=== PATIENT | male | born 1955 | race African-American/Black ===

== ENCOUNTER 2018-08-07 14:16 | Emergency (ER) | payer MEDICARE, OTHER ==
[~2018-08-07] VITALS: Ht 180.3 cm; Wt 112.0 kg
[2018-08-07] MEDS ORDERED: KETOROLAC 60MG/2ML VIAL IM STA (14:42)
[2018-08-07] MEDS ORDERED: CYCLOBENZAPRINE 10MG TABLET PO ONE (14:45)
[2018-08-07 15:27] LABS: BASOPHILS % 0.9 % (0.0-2.0); EOSINOPHILS % 6.6 % (0.0-5.0); HEMATOCRIT. 34.8 % (42.0-52.0); HEMOGLOBIN. 11.6 g/dL (14.0-18.0); LYMPHOCYTES % 23.4 % (20.0-50.0); MEAN CORPUSCULAR HEMOGLOBIN 30.4 pg (28.0-32.0); MEAN CORPUSCULAR VOLUME 90.9 fL (80.0-94.0); MEAN PLATELET VOLUME 9.6 fl (7.4-10.4); MONOCYTES % 12.2 % (2.0-8.0); NEUTROPHILS % 56.9 % (40.0-76.0); PLATELET 201 x1000/uL (130-400); RED BLOOD CELL COUNT 3.82 mill/uL (4.7-6.1)
[2018-08-07 15:33] LABS: CHLORIDE 109 mEq/L (98-107)
[2018-08-07 16:43] VITALS: BP 138/114
== END 2018-08-07 16:43 | disposition home or self-care (01) ==
LOC: ER 14:16
DX: M54.12 Radiculopathy, cervical region (principal); R07.9 Chest pain, unspecified; I10 Essential (primary) hypertension; M19.90 Unspecified osteoarthritis, unspecified site; E03.9 Hypothyroidism, unspecified; F17.200 Nicotine dependence, unspecified, uncomplicated
CPT/HCPCS: 36415; 71045; 80053; 84484; 85025; 93005; 96372; 99284; J1885

== ENCOUNTER 2019-12-11 10:54 | Emergency (ER) | payer MEDICARE, OTHER ==
[~2019-12-11] VITALS: Ht 182.9 cm; Wt 122.4 kg
[2019-12-11] MEDS ORDERED: IPRATROPIUM BROMIDE (0.02%) 0.5MG/2.5ML NEB HHN STA (12:00)
[2019-12-11] MEDS ORDERED: PREDNISONE 20MG TABLET PO STA (12:00)
[2019-12-11] MEDS ORDERED: ALBUTEROL (0.083%) 2.5MG/3ML NEB HHN STA (12:00)
[2019-12-11 12:34] LABS: BASOPHILS % 0.8 % (0.0-2.0); EOSINOPHILS % 4.5 % (0.0-5.0); HEMATOCRIT. 32.8 % (42.0-52.0); HEMOGLOBIN. 10.9 g/dL (14.0-18.0); LYMPHOCYTES % 14.4 % (20.0-50.0); MEAN CORPUSCULAR HEMOGLOBIN 28.9 pg (28.0-32.0); MEAN CORPUSCULAR VOLUME 87.4 fL (80.0-94.0); MONOCYTES % 8.1 % (2.0-8.0); NEUTROPHILS % 72.2 % (40.0-76.0); RED BLOOD CELL COUNT 3.76 mill/uL (4.7-6.1); RED CELL DISTRIBUTION WIDTH 15.6 % (11.6-14.6)
[2019-12-11 12:38] LABS: CHLORIDE 114 mEq/L (98-107); PROTHROMBIN TIME 10.8 sec (9.6-11.0)
[2019-12-11 13:01] LABS: CLARITY URINE CLEAR (CLEAR); COLOR URINE YELLOW (YELLOW); KETONES URINE NEGATIVE (NEGATIVE); LEUKOCYTE ESTERASE URINE TRACE (NEGATIVE); NITRITE URINE NEGATIVE (NEGATIVE); OCCULT BLOOD URINE NEGATIVE (NEGATIVE); PROTEIN URINE NEGATIVE (NEGATIVE); SPECIFIC GRAVITY URINE 1.017 (1.005-1.030)
[2019-12-11 13:03] LABS: PLATELET 264 x1000/uL (130-400)
[2019-12-11 14:16] VITALS: BP 101/77
== END 2019-12-11 14:18 | disposition home or self-care (01) ==
LOC: ER 10:54
DX: L03.314 Cellulitis of groin (principal); J44.9 Chronic obstructive pulmonary disease, unspecified; I12.9 Hypertensive chronic kidney disease with stage 1 through stage 4 chronic kidney disease, or unspecified chronic kidney disease; N18.9 Chronic kidney disease, unspecified; E03.9 Hypothyroidism, unspecified; M19.90 Unspecified osteoarthritis, unspecified site; F12.10 Cannabis abuse, uncomplicated; Z96.659 Presence of unspecified artificial knee joint
CPT/HCPCS: 36415; 71045; 80053; 81003; 83880; 84484; 85025; 85610; 94640; 99284; J7512

== ENCOUNTER 2020-08-20 14:16 | Emergency (ER) | payer MEDICARE, OTHER ==
[~2020-08-20] VITALS: Ht 182.9 cm; Wt 133.0 kg
[2020-08-20 15:31] VITALS: BP 120/94
[2020-08-20 16:29] LABS: BASOPHILS % 0.8 % (0.0-2.0); EOSINOPHILS % 2.4 % (0.0-5.0); HEMATOCRIT. 33.3 % (42.0-52.0); HEMOGLOBIN. 10.9 g/dL (14.0-18.0); LYMPHOCYTES % 25.3 % (20.0-50.0); MEAN CORPUSCULAR HEMOGLOBIN 29.4 pg (28.0-32.0); MEAN CORPUSCULAR VOLUME 89.3 fL (80.0-94.0); MEAN PLATELET VOLUME 9.8 fl (7.4-10.4); MONOCYTES % 7.1 % (2.0-8.0); NEUTROPHILS % 64.4 % (40.0-76.0); PLATELET 166 x1000/uL (130-400); RED BLOOD CELL COUNT 3.72 mill/uL (4.7-6.1); RED CELL DISTRIBUTION WIDTH 17.3 % (11.6-14.6)
[2020-08-20 16:34] LABS: CHLORIDE 110 mEq/L (98-107)
== END 2020-08-20 16:21 | disposition left against medical advice (07) ==
LOC: ER 14:16 → CANBEDREQ 08-21 04:45
DX: M79.10 Myalgia, unspecified site (principal); R13.10 Dysphagia, unspecified; F44.1 Dissociative fugue; E78.00 Pure hypercholesterolemia, unspecified; I10 Essential (primary) hypertension; Z53.29 Procedure and treatment not carried out because of patient's decision for other reasons; Z98.890 Other specified postprocedural states
CPT/HCPCS: 36415; 71045; 80048; 80076; 83605; 84145; 84484; 85025; 93005; 99285

== ENCOUNTER 2020-11-22 13:23 | Emergency (ER) | payer MEDICARE, OTHER ==
[~2020-11-22] VITALS: Ht 182.9 cm; Wt 122.0 kg
[2020-11-22] MEDS ORDERED: DOXY100C2 MT (14:58)
[2020-11-22] MEDS ORDERED: DOXYCYCLINE HYCLATE 100MG CAPSULE PO ONE (15:00)
[2020-11-22] MEDS ORDERED: CLOT113C TP (15:03)
[2020-11-22 15:43] VITALS: BP 151/89
== END 2020-11-22 15:43 | disposition home or self-care (01) ==
LOC: ER 13:23
DX: B48.8 Other specified mycoses (principal); I10 Essential (primary) hypertension; E03.9 Hypothyroidism, unspecified; E78.00 Pure hypercholesterolemia, unspecified; J44.9 Chronic obstructive pulmonary disease, unspecified; Z96.659 Presence of unspecified artificial knee joint
CPT/HCPCS: 99283

== ENCOUNTER 2021-04-08 12:48 | Emergency (ER) | payer MEDICARE, OTHER ==
[~2021-04-08] VITALS: Ht 182.9 cm; Wt 122.0 kg
[~2021-04-08 12:48] MED LIST: CLOT113C TP; DOXY100C2 MT
[2021-04-08 13:03] VITALS: BP 113/77
[2021-04-08] MEDS ORDERED: ACET650T37 MT (15:01)
[2021-04-08] MEDS ORDERED: NAPR375T5 MT (15:01)
== END 2021-04-08 15:39 | disposition home or self-care (01) ==
LOC: ER 12:48
DX: M25.521 Pain in right elbow (principal); I10 Essential (primary) hypertension; J44.1 Chronic obstructive pulmonary disease with (acute) exacerbation; E78.00 Pure hypercholesterolemia, unspecified; Z86.39 Personal history of other endocrine, nutritional and metabolic disease
CPT/HCPCS: 99281; 99282

== ENCOUNTER 2021-07-14 10:13 | Emergency (ER) | payer MEDICARE, OTHER ==
[~2021-07-14] VITALS: Ht 180.3 cm; Wt 123.0 kg
[~2021-07-14 10:13] MED LIST changes: +ACET650T37 MT; -DOXY100C2 MT; +DOXY100C5 MT; +NAPR375T5 MT
[2021-07-14 10:29] VITALS: BP 129/88
[2021-07-14] MEDS ORDERED: ACETAMINOPHEN 325MG TABLET PO STA (11:07)
[2021-07-14] MEDS ORDERED: IBUPROFEN 600MG TABLET PO STA (11:07)
[2021-07-14 11:55] LABS: BASOPHILS % 0.5 % (0.0-2.0); EOSINOPHILS % 5.1 % (0.0-5.0); HEMATOCRIT. 33.5 % (42.0-52.0); HEMOGLOBIN. 10.8 g/dL (14.0-18.0); LYMPHOCYTES % 23.1 % (20.0-50.0); MEAN CORPUSCULAR HEMOGLOBIN 27.9 pg (28.0-32.0); MEAN CORPUSCULAR VOLUME 86.4 fL (80.0-94.0); MEAN PLATELET VOLUME 8.9 fl (7.4-10.4); MONOCYTES % 8.7 % (2.0-8.0); NEUTROPHILS % 62.6 % (40.0-76.0); PLATELET 206 x1000/uL (130-400); RED BLOOD CELL COUNT 3.88 mill/uL (4.7-6.1); RED CELL DISTRIBUTION WIDTH 15.9 % (11.6-14.6)
[2021-07-14 12:03] LABS: CHLORIDE 112 mEq/L (98-107)
[2021-07-14 12:20] LABS: CLARITY URINE CLEAR (CLEAR); COLOR URINE YELLOW (YELLOW); KETONES URINE NEGATIVE (NEGATIVE); LEUKOCYTE ESTERASE URINE NEGATIVE (NEGATIVE); NITRITE URINE NEGATIVE (NEGATIVE); OCCULT BLOOD URINE NEGATIVE (NEGATIVE); PH URINE 5.5 (4.5-8.0); PROTEIN URINE NEGATIVE (NEGATIVE); SPECIFIC GRAVITY URINE 1.017 (1.005-1.030)
[2021-07-14] MEDS ORDERED: IOHEXOL-300 100 ML BOTTLE ONE (14:17)
[2021-07-14] MEDS ORDERED: CEPH500T MT (15:24)
== END 2021-07-14 15:37 | disposition home or self-care (01) ==
LOC: ER 10:13
DX: R10.32 Left lower quadrant pain (principal); I10 Essential (primary) hypertension; M19.90 Unspecified osteoarthritis, unspecified site; E78.00 Pure hypercholesterolemia, unspecified; J44.9 Chronic obstructive pulmonary disease, unspecified; Z96.659 Presence of unspecified artificial knee joint
CPT/HCPCS: 36415; 74176; 80053; 81003; 83690; 85025; 99284; Q9967

== ENCOUNTER 2021-07-17 12:52 | Emergency (ER) | payer MEDICARE, OTHER ==
[~2021-07-17] VITALS: Ht 180.3 cm; Wt 122.0 kg
[~2021-07-17 12:52] MED LIST changes: +CEPH500T MT
[2021-07-17] MEDS ORDERED: KETOROLAC 60MG/2ML VIAL IM STA (13:01)
[2021-07-17 13:23] LABS: BASOPHILS % 0.6 % (0.0-2.0); EOSINOPHILS % 4.7 % (0.0-5.0); HEMATOCRIT. 34.4 % (42.0-52.0); LYMPHOCYTES % 25.5 % (20.0-50.0); MEAN CORPUSCULAR HEMOGLOBIN 27.7 pg (28.0-32.0); MEAN PLATELET VOLUME 8.6 fl (7.4-10.4); MONOCYTES % 6.2 % (2.0-8.0); PLATELET 220 x1000/uL (130-400); RED BLOOD CELL COUNT 3.96 mill/uL (4.7-6.1); RED CELL DISTRIBUTION WIDTH 16.1 % (11.6-14.6)
[2021-07-17 14:07] LABS: CHLORIDE 109 mEq/L (98-107)
[2021-07-17 16:23] LABS: CLARITY URINE CLEAR (CLEAR); COLOR URINE YELLOW (YELLOW); KETONES URINE NEGATIVE (NEGATIVE); LEUKOCYTE ESTERASE URINE NEGATIVE (NEGATIVE); NITRITE URINE NEGATIVE (NEGATIVE); OCCULT BLOOD URINE NEGATIVE (NEGATIVE); PH URINE 5.5 (4.5-8.0); PROTEIN URINE NEGATIVE (NEGATIVE); SPECIFIC GRAVITY URINE 1.018 (1.005-1.030); UROBILINOGEN URINE 0.2 E.U./dL (0.2-1.0)
[2021-07-17] MEDS ORDERED: CEFTRIAXONE SODIUM 1 G/VIAL IM ONE (16:30)
[2021-07-17] MEDS ORDERED: CIPR500T5 MT (16:33)
[2021-07-17 17:00] VITALS: BP 140/96
[2021-07-17] MEDS ORDERED: LIDOCAINE HCL 1% 10 MG/ML 10ML VIAL INJ NR (17:00)
[2021-07-17] MEDS ORDERED: CEFTRIAXONE SODIUM 1 G/VIAL IM NR (17:00)
== END 2021-07-17 17:25 | disposition home or self-care (01) ==
LOC: ER 13:40
DX: N12 Tubulo-interstitial nephritis, not specified as acute or chronic (principal); J44.9 Chronic obstructive pulmonary disease, unspecified; I10 Essential (primary) hypertension; Z98.890 Other specified postprocedural states; Z79.899 Other long term (current) drug therapy
CPT/HCPCS: 36415; 80053; 81003; 83690; 85025; 96372; 99284; J0696; J1885; J3490

== ENCOUNTER 2021-08-15 12:30 | Emergency (ER) | payer MEDICARE, OTHER ==
[~2021-08-15] VITALS: Ht 182.9 cm; Wt 121.0 kg
[~2021-08-15 12:30] MED LIST changes: +CIPR500T5 MT
[2021-08-15] MEDS ORDERED: KETOROLAC 60MG/2ML VIAL IM STA (13:10)
[2021-08-15] MEDS ORDERED: NAPR-1164 MT (14:20)
[2021-08-15 14:29] VITALS: BP 128/81
== END 2021-08-15 16:06 | disposition home or self-care (01) ==
LOC: ER 12:30
DX: M25.521 Pain in right elbow (principal); I10 Essential (primary) hypertension; E78.00 Pure hypercholesterolemia, unspecified; J44.9 Chronic obstructive pulmonary disease, unspecified; Z96.659 Presence of unspecified artificial knee joint
CPT/HCPCS: 73070; 96372; 99283; J1885

== ENCOUNTER 2021-10-05 10:17 | Emergency (ER) | payer MEDICARE ==
[~2021-10-05] VITALS: Ht 182.9 cm; Wt 125.0 kg
[~2021-10-05 10:17] MED LIST changes: +NAPR-1164 MT
[2021-10-05] MEDS ORDERED: CYCLOBENZAPRINE 10MG TABLET PO ONE (10:45)
[2021-10-05] MEDS ORDERED: KETOROLAC 30MG/ML VIAL IM ONE (10:45)
[2021-10-05] MEDS ORDERED: CYCL10TA7 MT (11:38)
[2021-10-05] MEDS ORDERED: NAPR-1176 MT (11:38)
[2021-10-05 11:59] VITALS: BP 165/65
== END 2021-10-05 12:01 | disposition home or self-care (01) ==
LOC: ER 10:17
DX: M25.511 Pain in right shoulder (principal); E78.00 Pure hypercholesterolemia, unspecified; I10 Essential (primary) hypertension; E03.9 Hypothyroidism, unspecified; M19.90 Unspecified osteoarthritis, unspecified site; Z96.653 Presence of artificial knee joint, bilateral
CPT/HCPCS: 73030; 96372; 99283; J1885

== ENCOUNTER 2022-03-27 10:45 | Emergency (ER) | payer MEDICARE ==
[~2022-03-27] VITALS: Ht 182.9 cm; Wt 123.0 kg
[~2022-03-27 10:45] MED LIST changes: +ACET-3163 MT; -ACET650T37 MT; +CYCL10TA21 MT; +NAPR-1176 MT
[2022-03-27] MEDS ORDERED: LIDOCAINE 5% PATCH TOP SCH (13:00)
[2022-03-27] MEDS ORDERED: CYCLOBENZAPRINE 10MG TABLET PO ONE (13:00)
[2022-03-27 13:32] VITALS: BP 99/74
[2022-03-27] MEDS ORDERED: CYCL5TAB MT (14:20)
[2022-03-30] MEDS ORDERED: ATOR20TA PO (11:31)
[2022-03-30] MEDS ORDERED: TERA1CAP53 PO (11:31)
[2022-03-30] MEDS ORDERED: LEVO112T7 PO (11:31)
[2022-03-30] MEDS ORDERED: IBUP-2030 PO (11:31)
[2022-03-30] MEDS ORDERED: LOSA100T32 PO (11:31)
[2022-03-30] MEDS ORDERED: CLOP75TA33 PO (11:31)
[2022-03-30] MEDS ORDERED: AMLO10TA4 PO (11:31)
[2022-03-30] MEDS ORDERED: TAMS-11 PO (11:31)
== END 2022-03-27 14:31 | disposition home or self-care (01) ==
LOC: ER 10:45
DX: S39.012A Strain of muscle, fascia and tendon of lower back, initial encounter (principal); R07.89 Other chest pain; X58.XXXA Exposure to other specified factors, initial encounter; Y93.89 Activity, other specified; Y92.032 Bedroom in apartment as the place of occurrence of the external cause
CPT/HCPCS: 71045; 99283

== ENCOUNTER 2022-04-27 10:12 | Emergency (ER) | payer MEDICARE, MEDICAID ==
[~2022-04-27] VITALS: Ht 182.9 cm; Wt 122.0 kg
[~2022-04-27 10:12] MED LIST changes: +AMLO10TA4 PO; +ATOR20TA PO; -CEPH500T MT; -CIPR500T5 MT; +CLOP75TA33 PO; -DOXY100C5 MT; +HYDR-4001 MT; +IBUP-2030 PO; +LEVO112T7 PO; +LOSA100T32 PO; -NAPR-1164 MT; -NAPR-1176 MT; +TAMS-11 PO; +TERA1CAP53 PO
[2022-04-27] MEDS ORDERED: HYDROCODONE/ACETAMINOPHEN 5/325MG TABLET PO ONE (13:30)
[2022-04-27] MEDS ORDERED: LIDOCAINE 5% PATCH TOP SCH (13:30)
[2022-04-27] MEDS ORDERED: KETOROLAC 60MG/2ML VIAL IM ONE (13:30)
[2022-04-27] MEDS ORDERED: METHOCARBAMOL 750MG TABLET PO SCH (13:30)
[2022-04-27 14:03] VITALS: BP 124/88
[2022-04-27] MEDS ORDERED: TOPUD PO (14:47)
[2022-04-27] MEDS ORDERED: LIDO1ADH23 TP (14:47)
[2022-04-27] MEDS ORDERED: IBUP-2028 MT (14:47)
[2022-04-27] MEDS ORDERED: METH-653 MT (14:47)
== END 2022-04-27 15:17 | disposition home or self-care (01) ==
LOC: ER 10:12
DX: M54.50 Low back pain, unspecified (principal); I10 Essential (primary) hypertension; E78.00 Pure hypercholesterolemia, unspecified; E03.9 Hypothyroidism, unspecified; M19.90 Unspecified osteoarthritis, unspecified site; J44.9 Chronic obstructive pulmonary disease, unspecified; Z96.649 Presence of unspecified artificial hip joint
CPT/HCPCS: 71045; 74176; 93005; 96372; 99285; J1885

== ENCOUNTER 2022-06-30 10:01 | Emergency (ER) | payer MEDICARE ==
[~2022-06-30] VITALS: Ht 182.9 cm; Wt 122.0 kg
[~2022-06-30 10:01] MED LIST changes: +IBUP-2028 MT; +LIDO1ADH23 TP; +METH-653 MT; +TOPUD PO
[2022-06-30 10:31] VITALS: BP 118/75
[2022-06-30] MEDS ORDERED: DEXAMETHASONE 10 MG/ML VIAL IM ONE (12:00)
[2022-06-30] MEDS ORDERED: OXYCODONE HCL/ACETAMINOPHEN 5/325MG TABLET PO ONE (12:00)
== END 2022-06-30 13:35 | disposition home or self-care (01) ==
LOC: ER 10:33
DX: M16.9 Osteoarthritis of hip, unspecified (principal); I10 Essential (primary) hypertension; E78.00 Pure hypercholesterolemia, unspecified; Z79.899 Other long term (current) drug therapy; Z98.890 Other specified postprocedural states; Z86.39 Personal history of other endocrine, nutritional and metabolic disease
CPT/HCPCS: 96372; 99283; J1100

== ENCOUNTER 2022-09-05 14:41 | Emergency (ER) | payer MEDICARE ==
[~2022-09-05] VITALS: Ht 182.9 cm; Wt 118.0 kg
[2022-09-05 14:46] VITALS: BP 110/76
[2022-09-05] MEDS ORDERED: IBUP-2029 PO ×2 (16:07)
[2022-09-05] MEDS ORDERED: IBUPROFEN 600MG TABLET PO ONE (16:15)
[2022-09-05] MEDS ORDERED: HYDROCODONE/ACETAMINOPHEN 5/325MG TABLET PO ONE (16:15)
[2022-09-05] MEDS ORDERED: ACETAMINOPHEN WITH CODEINE 300/30MG TABLET PO ONE (16:45)
[2022-09-05] MEDS ORDERED: DEXAMETHASONE 10 MG/ML VIAL IV ONE (16:45)
[2022-09-05] MEDS ORDERED: DEXAMETHASONE 10 MG/ML VIAL IM ONE (16:45)
== END 2022-09-05 17:20 | disposition home or self-care (01) ==
LOC: ER 14:41
DX: M25.552 Pain in left hip (principal); I10 Essential (primary) hypertension; E78.00 Pure hypercholesterolemia, unspecified; J44.1 Chronic obstructive pulmonary disease with (acute) exacerbation; Z79.899 Other long term (current) drug therapy; Z98.890 Other specified postprocedural states; Z86.39 Personal history of other endocrine, nutritional and metabolic disease
CPT/HCPCS: 96374; 99283; J1100

== ENCOUNTER 2022-11-27 10:56 | Emergency (ER) | payer MEDICARE ==
[~2022-11-27] VITALS: Ht 182.9 cm; Wt 125.0 kg
[2022-11-27 13:23] LABS: BASOPHILS % 0.5 % (0.0-2.0); HEMATOCRIT. 33.3 % (42.0-52.0); HEMOGLOBIN. 10.8 g/dL (14.0-18.0); LYMPHOCYTES % 14.1 % (20.0-50.0); MEAN CORPUSCULAR HEMOGLOBIN 27.2 pg (28.0-32.0); MEAN CORPUSCULAR VOLUME 83.7 fL (80.0-94.0); MEAN PLATELET VOLUME 8.9 fl (7.4-10.4); MONOCYTES % 8.2 % (2.0-8.0); NEUTROPHILS % 74.2 % (40.0-76.0); PLATELET 262 x1000/uL (130-400); RED BLOOD CELL COUNT 3.98 mill/uL (4.7-6.1); RED CELL DISTRIBUTION WIDTH 19.7 % (11.6-14.6)
[2022-11-27 13:28] LABS: CHLORIDE 109 mEq/L (98-107)
[2022-11-27 13:31] LABS: PROTHROMBIN TIME 11.1 sec (9.6-11.0)
[2022-11-27 15:28] LABS: CHLORIDE 110 mEq/L (98-107)
[2022-11-27 15:46] LABS: ETHANOL BLOOD < 10 mg/dL
[2022-11-27] MEDS ORDERED: ACET-2708 MT (17:55)
[2022-11-27] MEDS ORDERED: LEVOTHYROXINE SODIUM 75MCG TABLET PO NR (18:00)
[2022-11-27] MEDS ORDERED: HYDROCODONE/ACETAMINOPHEN 5/325MG TABLET PO ONE (18:00)
[2022-11-27 18:06] VITALS: BP 136/90
== END 2022-11-27 18:07 | disposition home or self-care (01) ==
LOC: ER 12:35
DX: E03.9 Hypothyroidism, unspecified (principal); R60.0 Localized edema; Z00.00 Encounter for general adult medical examination without abnormal findings; J44.9 Chronic obstructive pulmonary disease, unspecified; E78.00 Pure hypercholesterolemia, unspecified
CPT/HCPCS: 36415; 71045; 80053; 80320; 83880; 84443; 84484; 85025; 93005; 93970; 99285; G0480

== ENCOUNTER 2023-11-10 15:17 | Emergency (ER) | payer MEDICARE, MEDICAID ==
[~2023-11-10] VITALS: Ht 182.9 cm; Wt 117.9 kg
[~2023-11-10 15:17] MED LIST changes: +ACET-2708 MT; -LOSA100T32 PO; +LOSA100T33 PO
[2023-11-10 15:28] VITALS: O2SAT 100
[2023-11-10 16:48] VITALS: BP 106/76; PULSE 98; RESP 16; TEMP 98.6
[2023-11-10] MEDS ORDERED: DICL100G58 TP (17:03)
[2023-11-10] MEDS ORDERED: IBUP-2029 MT (17:03)
[2023-11-10] MEDS: KETOROLAC 30MG/ML VIAL IM ONE (17:27)
[2023-11-10] MEDS: METHOCARBAMOL 500MG TABLET PO ONE (17:28)
== END 2023-11-10 16:48 | disposition home or self-care (01) ==
LOC: ER 15:17
DX: S43.402A Unspecified sprain of left shoulder joint, initial encounter (principal); M75.32 Calcific tendinitis of left shoulder; J44.1 Chronic obstructive pulmonary disease with (acute) exacerbation; E78.00 Pure hypercholesterolemia, unspecified; I10 Essential (primary) hypertension; Z79.899 Other long term (current) drug therapy; Z98.890 Other specified postprocedural states; Z86.59 Personal history of other mental and behavioral disorders; X58.XXXA Exposure to other specified factors, initial encounter; Y93.89 Activity, other specified; Y92.89 Other specified places as the place of occurrence of the external cause; Y99.8 Other external cause status
CPT/HCPCS: 73030; 99283

== ENCOUNTER 2024-04-23 13:52 | Emergency (ER) | payer MEDICARE, MEDICAID ==
[~2024-04-23] VITALS: Ht 180.3 cm; Wt 109.0 kg
[~2024-04-23 13:52] MED LIST changes: +DICL100G58 TP; +IBUP-2029 MT
[2024-04-23 14:09] VITALS: O2SAT 98
[2024-04-23 14:13] VITALS: BP 116/94; PULSE 98; RESP 16; TEMP 98; O2SAT 99
== END 2024-04-23 18:07 | disposition home or self-care (01) ==
LOC: ER 13:57
DX: I10 Essential (primary) hypertension (principal); E03.9 Hypothyroidism, unspecified; Z96.653 Presence of artificial knee joint, bilateral; Z79.899 Other long term (current) drug therapy
CPT/HCPCS: 99281